=== PATIENT | female | born 1975 | race Two or more races ===

== ENCOUNTER 2016-07-25 06:46 | Emergency (ER) | payer SELFPAY ==
[~2016-07-25] VITALS: Ht 170.2 cm; Wt 124.0 kg
[2016-07-25 08:57] LABS: BASOPHIL COUNT 0.1 K/uL (0-0.1); EOSINOPHIL COUNT 0.1 K/uL (0-0.3); HEMATOCRIT 36.6 % (36.0-46.0); IMMATURE GRANULOCYTE (%) 0.1 % (0.0-0.7); INSTRUMENT ABS NEUTROPHIL CT 3.7 K/uL; LYMPHOCYTE COUNT 2.6 K/uL (1.0-2.8); MCH 19.7 PG (29.0-34.0); MCHC 29.5 G/DL (30.0-36.0); MCV 66.9 FL (83-99); MEAN PLAT.VOLUME 10.5 uM^3 (9.5-12.4); MONOCYTE (%) 5.6 % (3-12); MONOCYTE COUNT 0.4 K/uL (0-0.8); NEUTROPHIL (%) 53.6 % (45-76); NEUTROPHIL COUNT 3.7 K/uL (1.8-6.4); PLATELET COUNT 250 K/uL (156-360); RBC DIS.WIDTH-SD 37.9 % (39-53); RED BLOOD COUNT 5.47 M/uL (3.80-5.20); WHITE BLOOD COUNT 6.8 K/uL (4.1-10.2)
[2016-07-25 09:13] LABS: TROP-I INTERPRETATION NEGATIVE; TROPONIN-I < 0.01 ng/mL (0.0-0.30)
[2016-07-25 09:22] LABS: ADD MIUA? NO; BILIRUBIN NEGATIVE; BLOOD NEGATIVE; COLOR STRAW ((YELLOW)); GLUCOSE (STRIP) NEGATIVE; KETONES NEGATIVE; LEUKOCYTES NEGATIVE; NITRITE NEGATIVE; PROTEIN (STRIP) NEGATIVE; SPECIFIC GRAVITY 1.008 (1.000-1.030); UCUL ADDED? NO; UROBILINOGEN 0.2 MG/DL (0.2-1.0)
[2016-07-25 09:35] LABS: ANION GAP 7 MEQ/L (2-14); CHLORIDE 99 MEQ/L (99-109); GFR ESTIMATE (CALCULATED) > 59 mL/min/; GLUCOSE 143 mg/dL (70-99); POTASSIUM 4.3 MEQ/L (3.7-5.4); SAMPLE HEMOLYSIS CHECK 0; SAMPLE ICTERIC CHECK 0; SAMPLE LIPEMIA CHECK 0; SODIUM 136 MEQ/L (136-147); UREA NITROGEN (BUN) 14 mg/dL (9-23)
[2016-07-25] MEDS ORDERED: TYLENOL WITH C1 EACH PO (11:09)
[2016-07-25 11:22] VITALS: BP 114/71
== END 2016-07-25 11:23 | disposition home or self-care (01) ==
LOC: EME 06:46
PROVIDERS: Emergency Medicine
DX: J40 Bronchitis, not specified as acute or chronic (principal); R07.89 Other chest pain
CPT/HCPCS: 71020; 80048; 81003; 84484; 85025; 87651 90; 93005; 94640; 99281; 99285; J1100

== ENCOUNTER 2016-09-27 21:00 | Emergency (ER) | payer SELFPAY ==
[~2016-09-27] VITALS: Ht 167.6 cm; Wt 124.2 kg
[~2016-09-27 21:00] MED LIST: TYLENOL WITH C1 EACH PO
[2016-09-27 21:44] LABS: HEMATOCRIT 35.2 % (36.0-46.0); MCH 19.8 PG (29.0-34.0); MCHC 29.8 G/DL (30.0-36.0); MCV 66.4 FL (83-99); MEAN PLAT.VOLUME 11.1 uM^3 (9.5-12.4); PLATELET COUNT 255 K/uL (156-360); RBC DIS.WIDTH-CV 17.2 % (11.8-14.6); RBC DIS.WIDTH-SD 39.5 % (39-53)
[2016-09-27 21:47] LABS: CHLORIDE 102 mEq/L (99-109); POTASSIUM 3.9 mEq/L (3.7-5.4); SODIUM 137 mEq/L (136-147)
[2016-09-27 21:48] LABS: GLUCOSE 135 mg/dL (70-99)
[2016-09-27 21:50] LABS: ANION GAP 7 MEQ/L (2-14)
[2016-09-27 21:52] LABS: GFR ESTIMATE (CALCULATED) > 59 mL/min/
[2016-09-27 21:53] LABS: UREA NITROGEN (BUN) 11 mg/dL (9-23)
[2016-09-27 22:00] LABS: TROP-I INTERPRETATION NEGATIVE; TROPONIN-I < 0.01 ng/mL (0.0-0.30)
[2016-09-27] MEDS ORDERED: ZITHROMAX Z-PA250 MG PO (22:35)
[2016-09-27] MEDS ORDERED: ROBITUSSIN AC,T10 ML PO (22:35)
[2016-09-27] MEDS ORDERED: MEDROL DOSEPAK4 MG PO (22:35)
[2016-09-27 22:49] VITALS: BP 124/85
== END 2016-09-27 22:53 | disposition home or self-care (01) ==
LOC: EXP 21:00 → EME 21:00 → EXP 22:53
PROVIDERS: Physician Assistant
DX: R07.9 Chest pain, unspecified (principal); J06.9 Acute upper respiratory infection, unspecified
CPT/HCPCS: 71020; 80048; 84484; 85027; 93005; 94640; 99281; 99285